=== PATIENT | female | born 1960 | race Hispanic/Latino ===

== ENCOUNTER 2021-04-11 14:34 | Observation (INO) | payer OTHER ==
[~2021-04-11 14:34] MED LIST: AMINOPHYLLINE 500 MG/20 ML INJ IV ONE; ONDANSETRON 4 MG/2 ML INJ ONE
[2021-04-11] MEDS ORDERED: ASPIRIN 325 MG TAB PO ONE (14:55)
[2021-04-11 15:23] LABS: Basophils # (Auto) 0.1 K/mm3 (0.0-0.1); Basophils % (Auto) 0.8 % (0.0-1.8); Eosinophils # (Auto) 0.1 K/mm3 (0.0-0.4); Eosinophils % (Auto) 1.2 % (0.0-4.3); Hematocrit 37.4 % (30.3-42.9); Hemoglobin 13.1 gm/dl (10.1-14.3); Lymphocytes # (Auto) 2.2 K/mm3 (1.2-5.4); Lymphocytes % (Auto) 34.3 % (13.4-35.0); Mean Corpuscular HGB Conc 35 % (30-34); Mean Corpuscular Volume 96 fl (79-97); Monocytes # (Auto) 0.6 K/mm3 (0.0-0.8); Monocytes % (Auto) 9.9 % (0.0-7.3); Platelet Count 177 K/mm3 (140-440); Red Blood Count 3.89 M/mm3 (3.65-5.03); Red Cell Distribution Width 13.9 % (13.2-15.2)
--- NOTE | 2021-04-11 15:26 | Emergency Department Report ---
ED Chest Pain HPI - General Chief Complaint: Chest Pain Stated Complaint: CHEST PAIN/SHORTNESS OF BREATH Time Seen by Provider: 04/11/21 14:50 Source: patient Mode of arrival: Stretcher Limitations: No Limitations - History of Present Illness Initial Comments: This is a 61-year-old female presents to the emergency department via EMS from with complaint of a 3-day history of intermittent left-sided chest pain and shortness of breath. Patient has a history of previous GA x2, bipolar disorder, and remote rheumatic fever. She denies having any coronary stents in place. The patient just recently moved here from [place] and therefore does not have a local primary care physician or supervisor inventory merchandising. She is a former smoker and denies any illicit drug use. Patient has been taking some sublingual nitroglycerin while at home with some transient relief. She received a full dose aspirin and 3 sublingual nitroglycerin in route with EMS. She denies any fever, cough, back pain, lower extremity swelling, nausea, vomiting or diaphoresis. At the time of my initial examination the patient says that the pain has resolved but it is intermittent. No known aggravating factors. Severity scale (0 -10): 4 - Related Data Allergies Allergy/AdvReac Type Severity Reaction Status Date / Time Sulfa (Sulfonamide Allergy Hives Verified 04/11/21 14:51 Antibiotics) Heart Score - HEART Score History: Slightly suspicious EKG: Normal Age: 45-65 Risk factors: > 3 risk factors or hx of atherosclerotic disease Troponin: < normal limit HEART Score: 3 - EKG Read Time Time EKG Completed: 14:56 EKG Read Time: 15:06 - Critical Actions Critical Actions: 0-3 pts:0.9-1.7%risk of adverse cardiac event.Candidate for discharge ED Review of Systems ROS: Stated complaint: CHEST PAIN/SHORTNESS OF BREATH Other details as noted in HPI Comment: All other systems reviewed and negative Constitutional: denies: chills, fever Eyes: denies: eye pain, vision change ENT: denies: ear pain, throat pain Respiratory: shortness of breath. denies: cough Cardiovascular: chest pain. denies: palpitations, edema Gastrointestinal: denies: abdominal pain, vomiting Genitourinary: denies: dysuria, discharge Musculoskeletal: denies: back pain, arthralgia Skin: denies: rash, lesions Neurological: denies: headache, weakness ED Past Medical Hx - Past Medical History Previous Medical History?: Yes Hx Hypertension: Yes Hx Heart Attack/AMI: Yes Additional medical history: Rheumatic Fever. Tremors from [employer] meds - Surgical History Past Surgical History?: No - Social History Smoking Status: Former Smoker Substance Use Type: None ED Physical Exam - General Limitations: No Limitations - Other Other exam information: GENERAL: The patient is well-developed well-nourished. HENT: Normocephalic. Atraumatic. Patient has moist mucous membranes. EYES: Extraocular motions are intact. NECK: Supple. Trachea is midline. CHEST/LUNGS: Clear to auscultation. There is no respiratory distress noted. Chest pain is not reproducible to palpation of the chest wall. No crepitus or deformity. HEART/CARDIOVASCULAR: Regular. There is no tachycardia. There is no murmur. ABDOMEN: Abdomen is soft, nontender. Patient has normal bowel sounds. SKIN: Skin is warm and dry. NEURO: The patient is awake, alert, and oriented. The patient is cooperative. The patient has no focal neurologic deficits. Normal speech. Patient has a right upper extremity tremor that she says is chronic. MUSCULOSKELETAL: There is no tenderness or deformity. There is no limitation range of motion. ED Course Vital Signs 04/11/21 15:05 Pulse Rate 103 H Respiratory 18 Rate Blood Pressure 130/95 [Right] O2 Sat by Pulse 96 Oximetry RAMÍREZ score - Ramírez Score Age > 65: (0) No Aspirin use within the Past 7 Days: (1) Yes 3 or more CAD Risk Factors: (1) Yes 2 or more Angina events in past 24 hrs: (1) Yes Known CAD with more than 50% Stenosis: (0) No Elevated Cardiac Markers: (0) No ST Deviation Greater than 0.5mm: (0) No RAMÍREZ Score: 3 ED Medical Decision Making - Lab Data Result diagrams: 04/11/21 15:00 04/11/21 15:00 - EKG Data -: EKG Interpreted by Me EKG shows normal: sinus rhythm, axis, intervals, QRS complexes, ST-T waves Rate: normal - EKG Data When compared to previous EKG there are: previous EKG unavailable Interpretation: normal EKG - Radiology Data Radiology results: image reviewed interpreted by me: Chest x-ray does not show any acute process. There are no pleural effusions, obvious pneumonia and there is no pneumothorax. No widened mediastinum - Medical Decision Making This patient presents with the complaint of a few days of intermittent left- sided chest pain that has worsened today. EKG does not have any morphology consistent with ST elevation myocardial infarction. Chest x-ray does not show any pneumonia, pleural effusions, widened mediastinum, or any acute process. Patient's labs have thus far been unremarkable including CBC, metabolic panel, negative D-dimer, negative first troponin. She has a moderate heart and RAMÍREZ score. For these reasons the patient will be admitted to the hospital for fur ther evaluation and treatment and was accepted for admission by the hospitalist, Dr. Mohamud. Critical Care Time: No Critical care attestation.: If time is entered above; I have spent that time in minutes in the direct care of this critically ill patient, excluding procedure time. ED Disposition Clinical Impression: Acute chest pain Dyspnea Qualifiers: Dyspnea type: shortness of breath Qualified Code(s): R06.02 - Shortness of br eath; R06.00 - Dyspnea, unspecified; R06.01 - Orthopnea Disposition: 09 OP ADMIT IP TO THIS HOSP Is pt being admited?: Yes Condition: Fair Instructions: Chest Pain (ED) Time of Disposition: 17:29
[2021-04-11 15:34] LABS: INR 0.84 (0.87-1.13)
[2021-04-11 15:44] LABS: Alanine Aminotransferase < 5 units/L (7-56); Albumin 3.4 g/dL (3.9-5); BUN/Creatinine Ratio 26; Blood Urea Nitrogen 21 mg/dL (7-17); Calcium 8.6 mg/dL (8.4-10.2); Hemolysis Index 6
--- NOTE | 2021-04-11 15:49 | XRay Report ---
XR chest 1V ap INDICATION / CLINICAL INFORMATION: chest pain . COMPARISON: None available. FINDINGS: SUPPORT DEVICES: None. HEART /PULMONARY VASCULATURE: No significant abnormality. LUNGS / PLEURA: No significant pulmonary or pleural abnormality. No pneumothorax. ADDITIONAL FINDINGS: No significant additional findings. IMPRESSION: 1. No acute findings. Signer Name: Bob Campuzano MD Signed: 04/11/2021 3:45 PM Workstation Name: [id number]
[2021-04-11] MEDS ORDERED: MORPHINE 4 MG/1 ML INJ ONE (16:25)
[2021-04-11] MEDS ORDERED: IPRATROPIUM/ALBUTEROL SULFATE 3 ML AMPUL.NEB IH ONE (16:29)
[2021-04-11] MEDS ORDERED: MORPHINE 4 MG/1 ML INJ IV ONE (16:30)
[2021-04-11] MEDS: HYDROmorphone 1 MG/1 ML INJ IV PRN ×2 (19:36→21:18)
[2021-04-12] MEDS: HYDROmorphone 1 MG/1 ML INJ IV PRN ×4 (00:15→15:00)
--- NOTE | 2021-04-12 01:48 | History and Physical Report ---
History of Present Illness Date of examination: 04/11/21 Date of admission: 04/11/21 17:29 Chief complaint: Chest pain for 1 day History of present illness: 61-year-old female with history of tardive dyskinesia and rest tremors comes in for left-sided chest pain for 3 days. Chest pain is intermittent. Patient has history of coronary artery disease, bipolar disorder and remote rheumatic fever. No coronary stents. Patient is taking sublingual nitrogly cerin for relief of pain. No nausea vomiting or diarrhea. Chest pain is retrosternal and about 6 on a scale of 1-10. No radiation. No diaphoresis. No shortness of breath. Heart Score - HEART Score History: Slightly suspicious EKG: Normal Age: 45-65 Risk factors: > 3 risk factors or hx of atherosclerotic disease Troponin: < normal limit HEART Score: 3 - EKG Read Time Time EKG Completed: 14:56 EKG Read Time: 15:06 - Critical Actions Critical Actions: 0-3 pts:0.9-1.7%risk of adverse cardiac event.Candidate for discharge Review of Systems ROS: Stated complaint: CHEST PAIN/SHORTNESS OF BREATH Other details as noted in HPI Comment: All other systems reviewed and negative Constitutional: denies: chills, fever Eyes: denies: eye pain, vision change ENT: denies: ear pain, throat pain Respiratory: shortness of breath. denies: cough Cardiovascular: chest pain. denies: palpitations, edema Gastrointestinal: denies: abdominal pain, vomiting Genitourinary: denies: dysuria, discharge Musculoskeletal: denies: back pain, arthralgia Skin: denies: rash, lesions Neurological: denies: headache, weakness Past History Past Medical History: CAD, hypertension, other (Tardive dyskinesia.) Past Surgical History: Other (Right knee surgery-arthroscopy) Social history: full code, other (Used to be a smoker and occasional alcohol in the past few years ago. Stop smoking.) Medications and Allergies Allergies Allergy/AdvReac Type Severity Reaction Status Date / Time Sulfa (Sulfonamide Allergy Hives Verified 04/11/21 14:51 Antibiotics) Home Medications Medication Instructions Recorded Confirmed Last Taken Type Aspirin EC [Halfprin EC] 81 mg PO QDAY 04/12/21 04/12/21 04/11/21 History 81 Cariprazine HCl [Vraylar] 6 mg PO DAILY MDD 6mg 04/12/21 04/12/21 04/11/21 History [address] 1,000 mg PO HS MDD 2 tabs 04/12/21 04/12/21 04/11/21 History 1000 mg Ibuprofen [Motrin 600 MG tab] 600 mg PO DAILY MDD 600 04/12/21 04/12/21 04/11/21 History 600 mg Levothyroxine 125 mcg PO DAILY MDD 125mcg 04/12/21 04/12/21 04/11/21 History 125 mcg traZODone [Desyrel] 100 mg PO QHS MDD 100mg 04/12/21 04/12/21 04/10/21 History 100 mg Active Meds: Active Medications Hydromorphone HCl (Hydromorphone 1 Mg/1 Ml Inj) 0.5 mg IV Q3H PRN PRN Reason: Pain , Severe (7-10) Last Admin: 04/11/21 21:18 Dose: 0.5 mg Documented by: Exam - Constitutional Vitals: Temp Pulse Resp BP Pulse Ox 98.6 F 84 20 122/87 97 04/12/21 01:16 04/12/21 01:42 04/12/21 01:16 04/12/21 01:16 04/12/21 01:16 General appearance: Present: no acute distress, well-nourished - EENT Eyes: Present: PERRL ENT: hearing intact, clear oral mucosa - Neck Neck: Present: supple, normal ROM - Respiratory Respiratory effort: normal Respiratory: bilateral: CTA - Cardiovascular Heart rate: 78 Rhythm: regular Heart Sounds: Present: S1 & S2. Absent: rub, click - Extremities Extremities: pulses symmetrical, No edema Peripheral Pulses: within normal limits - Abdominal General gastrointestinal: Present: soft, non-tender, non-distended, normal bowel sounds Female genitourinary: Present: normal - Integumentary Integumentary: Present: clear, warm, dry - Musculoskeletal Musculoskeletal: strength equal bilaterally, other (Rest tremors) - Psychiatric Psychiatric: appropriate mood/affect, intact judgment & insight - Neurologic Neurologic: CNII-XII intact, moves all extremities HEART Score - HEART Score EKG: Normal Age: 45-65 Risk factors: > 3 risk factors or hx of atherosclerotic disease Troponin: Troponin T < 0.010 ng/mL (0.00-0.029) 04/11/21 20:11 Troponin: < normal limit - Critical Actions Critical Actions: 0-3 pts:0.9-1.7%risk of adverse cardiac event.Candidate for discharge Results - Labs CBC & Chem 7: 04/11/21 15:00 04/11/21 15:00 Labs: Laboratory Last Values WBC 6.3 K/mm3 (4.5-11.0) 04/11/21 15:00 RBC 3.89 M/mm3 (3.65-5.03) 04/11/21 15:00 Hgb 13.1 gm/dl (10.1-14.3) 04/11/21 15:00 Hct 37.4 % (30.3-42.9) 04/11/21 15:00 MCV 96 fl (79-97) 04/11/21 15:00 MCH 34 pg (28-32) H 04/11/21 15:00 MCHC 35 % (30-34) H 04/11/21 15:00 RDW 13.9 % (13.2-15.2) 04/11/21 15:00 Plt Count 177 K/mm3 (140-440) 04/11/21 15:00 Lymph % (Auto) 34.3 % (13.4-35.0) 04/11/21 15:00 [place] % (Auto) 9.9 % (0.0-7.3) H 04/11/21 15:00 Eos % (Auto) 1.2 % (0.0-4.3) 04/11/21 15:00 Baso % (Auto) 0.8 % (0.0-1.8) 04/11/21 15:00 Lymph # (Auto) 2.2 K/mm3 (1.2-5.4) 04/11/21 15:00 [place] # (Auto) 0.6 K/mm3 (0.0-0.8) 04/11/21 15:00 Eos # (Auto) 0.1 K/mm3 (0.0-0.4) 04/11/21 15:00 Baso # (Auto) 0.1 K/mm3 (0.0-0.1) 04/11/21 15:00 Seg Neutrophils % 53.8 % (40.0-70.0) 04/11/21 15:00 Seg Neutrophils # 3.4 K/mm3 (1.8-7.7) 04/11/21 15:00 PT 12.1 Sec. (12.2-14.9) L 04/11/21 15:10 INR 0.84 (0.87-1.13) L 04/11/21 15:10 D-Dimer 188.83 ng/mlDDU (0-234) 04/11/21 15:34 Sodium 139 mmol/L (137-145) 04/11/21 15:00 Potassium 3.7 mmol/L (3.6-5.0) 04/11/21 15:00 Chloride 103.3 mmol/L (98-107) 04/11/21 15:00 Carbon Dioxide 26 mmol/L (22-30) 04/11/21 15:00 Anion Gap 13 mmol/L 04/11/21 15:00 BUN 21 mg/dL (7-17) H 04/11/21 15:00 Creatinine 0.8 mg/dL (0.6-1.2) 04/11/21 15:00 Estimated GFR > 60 ml/min 04/11/21 15:00 BUN/Creatinine Ratio 26 % 04/11/21 15:00 Glucose 83 mg/dL (65-100) 04/11/21 15:00 Calcium 8.6 mg/dL (8.4-10.2) 04/11/21 15:00 Total Bilirubin 0.20 mg/dL (0.1-1.2) 04/11/21 15:00 AST 10 units/L (5-40) 04/11/21 15:00 ALT < 5 units/L (7-56) L 04/11/21 15:00 Alkaline Phosphatase 50 units/L (35-129) 04/11/21 15:00 Troponin T < 0.010 ng/mL (0.00-0.029) 04/11/21 20:11 Total Protein 5.9 g/dL (6.3-8.2) L 04/11/21 15:00 Albumin 3.4 g/dL (3.9-5) L 04/11/21 15:00 Albumin/Globulin Ratio 1.4 % 04/11/21 15:00 Assessment and Plan Advance Directives: Yes (Full code) VTE prophylaxis?: Chemical Plan of care discussed with patient/family: Yes - Patient Problems (1) Acute coronary syndrome Current Visit: Yes Status: Acute Plan to address problem: Serial troponins and Lexiscan in the morning (2) Hypothyroidism (acquired) Current Visit: Yes Status: Chronic Plan to address problem: Continue Synthroid and check TSH (3) Bipolar disorder Current Visit: Yes Status: Chronic Qualifiers: Active/Remission status: in remission of unspecified degree Qualified Code(s): F31.70 - Bipolar disorder, currently in remission, most recent episode unspecified Plan to address problem: Continue home medications in the form of Depakote and Vraylar (4) DVT prophylaxis Current Visit: Yes Status: Acute Plan to address problem: On heparin and GI prophylaxis
[2021-04-12] MEDS ORDERED: ACETAMINOPHEN 325 MG TAB PO PRN (01:49)
[2021-04-12] MEDS ORDERED: METOCLOPRAMIDE 10 MG/2 ML INJ IV PRN (01:49)
[2021-04-12] MEDS ORDERED: oxyCODONE /ACETAMINOPHEN 5-325MG TAB PO PRN (01:49)
[2021-04-12] MEDS ORDERED: ONDANSETRON 4 MG/2 ML INJ IV PRN (01:49)
[2021-04-12] MEDS ORDERED: REGADENOSON 0.4 MG/5 ML INJ IV ONE (09:00)
[2021-04-12] MEDS ORDERED: LEVOTHYROXINE 125 MCG TAB PO SCH (09:00)
--- NOTE | 2021-04-12 09:57 | Electrocardiograph Report ---
[facility] Test Date: 2021-04-11 Test Time: 14:56:35 Pat Name: MAREK CHAIREZ Department: Room: A481 1 Gender: F Windows Consultant: JERRY BURNETTE : 1960 Requested By: LYNDA CROWE Order Number: [id number] Reading MD: Delfino Gaona Measurements Intervals [place] Rate: 78 P: 56 NH: 158 QRS: 4 QRSD: 67 T: 24 QT: 337 QTc: 385 Interpretive Statements Sinus rhythm non specific st-t No previous ECG available for comparison Electronically Signed On 04-12-2021 9:56:34 EDT by Delfino Gaona
[2021-04-12] MEDS ORDERED: HEPARIN 5,000 UNIT/1 ML VIAL SUB-Q SCH (10:00)
[2021-04-12] MEDS ORDERED: FAMOTIDINE 20 MG TAB PO SCH (10:00)
[2021-04-12] MEDS ORDERED: ASPIRIN EC 81 MG TAB PO SCH (10:00)
[2021-04-12] MEDS ORDERED: CARIPRAZINE HCL 6 MG PO SCH (10:00)
--- NOTE | 2021-04-12 10:05 | Electrocardiograph Report ---
[facility] Test Date: 2021-04-12 Test Time: 07:19:54 Pat Name: MAREK CHAIREZ Department: Room: A481 1 Gender: F Dynamic Balancer Set Up Worker: MICHAEL : 1960 Requested By: LYNDA CROWE Order Number: [id number] Reading MD: Delfino Gaona Measurements Intervals [place] Rate: 84 P: WI: QRS: -6 QRSD: 81 T: 16 QT: 360 QTc: 426 Interpretive Statements NSR non specific st-t baseline artifact Compared to ECG 04/11/2021 14:56:35 Electronically Signed On 04-12-2021 10:04:52 EDT by Delfino Gaona
--- NOTE | 2021-04-12 12:07 | Nuclear Medicine Report ---
APPROVED REPORT Exam: Nuclear Stress Test Indication: Chest pain BMI: 0 Stress Test Details Stress Test: Pharmacologic stress testing performed using 0.4 mg of regadenoson per 5 mL given IV over 10 seconds. HR Resting HR: 79 bpm Max HR Achieved: 109 bpm Max Heart Rate (APMHR): 159 bpm Target HR (85% APMHR): 135 bpm % of APMHR: 68 Recovery HR: 91 bpm HR response to stress: Normal HR response to stress BP Resting BP: 114/57 mmHg Max BP: 141/83 mmHg Recovery BP: 129/59 mmHg BP response to stress: Normal blood pressure response to stress. ECG Resting ECG: Sinus Rhythm Stress ECG: Sinus Tachycardia Clinical Reason for Termination: Completed protocol NM EXAM: Myocardial Perfusion REST/STRESS Imaging Protocol: Rest Tc-99m/Stress Tc-99m 1 day Resting Data Rest SPECT myocardial perfusion imaging was performed in supine position 45 minutes following the intravenous injection of 10 mCi of Tc-99m Myoview. Time of rest injection: 0900 Pharmacologic Stress Pharmacologic stress test was performed by injecting Regadenoson 0.4 mg IV push followed by the intravenous injection of 28 mCi of Tc-99m Myoview. Time of stress injection: 1000 Gated Stress SPECT was performed 30 minutes after stress injection. Study Quality Study: excellent Lung Uptake: Normal Study Data TID = 0.96. Perfusion Wall Motion The rest and stress images show normal left ventricular wall motion. Nuclear Conclusion ECG Findings: negative for ischemia Clinical Findings: negative for ischemia Nuclear Findings: negative for ischemia Exercise Capacity: not assessed Left Ventricular Function: normal Normal study. No signficant scintigraphic evidence for myocardial ischemia or scar. proably breast attenutation for a small mild apical anterior defect and normal lv function
[2021-04-12 13:17] VITALS: BP 132/70
--- NOTE | 2021-04-12 16:16 | Discharge Summary ---
Providers - Providers Date of Admission: 04/11/21 17:29 Date of discharge: 04/12/21 Attending physician: BK CORTEZ 04/12/21 07:23 Consult to Mental Health [CONS] Routine Reason For Exam: History of bipolar disorder Primary care physician: PICKLE CUTTER Hospitalization Condition: Fair Pertinent studies: CXR MPI stress test Hospital course: 61-year-old female with history of tardive dyskinesia and rest tremors comes in for left-sided chest pain for 3 days. Patient was evaluated in the ER, initial cardiac enzyme and EKG was unremarkable, chest x-ray showed no infiltrates. Patient was admitted and underwent myocardial stress test which was normal. Patient was then discharged home in stable condition with outpatient follow-up. Disposition: TO HOME OR SELFCARE Final Discharge Diagnosis (Prints w/discharge instructions): Atypical chest pain, likely due to GERD. Acquired hypothyroidism. Bipolar disorder. Tardive dyskinesia Time spent for discharge: 32 minutes Core Measure Documentation - Palliative Care Palliative Care/ Comfort Measures: Not Applicable - Core Measures Any of the following diagnoses?: none Exam - Physical Exam Narrative exam: General appearance: Present: no acute distress, well-nourished - EENT Eyes: Present: PERRL ENT: hearing intact, clear oral mucosa - Neck Neck: Present: supple, normal ROM - Respiratory Respiratory effort: normal Respiratory: bilateral: CTA - Cardiovascular Heart rate: 78 Rhythm: regular Heart Sounds: Present: S1 & S2. Absent: rub, click - Extremities Extremities: pulses symmetrical, No edema Peripheral Pulses: within normal limits - Abdominal General gastrointestinal: Present: soft, non-tender, non-distended, normal bowel sounds Female genitourinary: Present: normal - Integumentary Integumentary: Present: clear, warm, dry - Musculoskeletal Musculoskeletal: strength equal bilaterally, other (Rest tremors) - Psychiatric Psychiatric: appropriate mood/affect, intact judgment & insight - Neurologic Neurologic: CNII-XII intact, moves all extremities - Constitutional Vitals: Temp Pulse Resp BP Pulse Ox 98.7 F 84 20 132/70 97 04/12/21 07:30 04/12/21 07:30 04/12/21 08:09 04/12/21 10:13 04/12/21 08:09 Plan Activity: advance as tolerated, fall precautions Weight Bearing Status: Weight Bear as Tolerated Diet: low fat, low salt Additional Instructions: Follow-up with PCP in 1 week Follow up with: PRIMARY CARE, [Primary Care Provider] - 3-5 Days Prescriptions: Pantoprazole [Protonix] 40 mg PO QDAY #30 tablet
--- NOTE | 2021-04-12 20:44 | Consultation ---
History of Present Illness - Reason for Consult Consult date: 04/12/21 Reason for consult: Bipolar - Chief Complaint Chief complaint: Chest pain for 1 day - History of Present Psychiatric Illness Per note: 61-year-old female with history of tardive dyskinesia and rest tremors comes in for left-sided chest pain for 3 days. Chest pain is intermittent. Patient has history of coronary artery disease, bipolar disorder and remote rheumatic fever. No coronary stents. Patient is taking sublingual nitroglycerin for relief of pain. No nausea vomiting or diarrhea. Chest pain is retrosternal and about 6 on a scale of 1-10. No radiation. No diaphoresis. No shortness of breath. The patient is a 61 year old female with a past history of Bipolar, PTSD and Tardive Dyskinesia who presented to the ED with chest pain. In my interview with patient, she reports doing well but would like for her psychotropic medications to be restarted. She reports taking Vraylar 6mg daily, Depakote 1000mg at bedtime and Trazodone 100mg at bedtime. Patient reports mood as "OK." Patient reports she has being on medications for a while and states "I would rather have the shakes than bipolar." Patient denies any current suicidal ideation and denies hallucinations. PAST PSYCHIATRIC HISTORY: Diagnoses: Bipolar and PTSD Suicide attempts or Self-harm behavior: Denied Prior psychiatric hospitalizations: Yes Substance Abuse history: Denied Previous psychiatric medications tried: unable to recall Outpatient treatment:unknown PAST MEDICAL HISTORY: Family Psychiatric History: None reported or documented SOCIAL HISTORY Marital Status: known Living Arrangements: Lives alone Employment Status: unknown Access to guns/weapons: n/a Education: unknown History of Abuse: n/a Legal History: n/a REVIEW OF SYSTEMS Constitutional: Negative for weight loss ENT: Negative for stridor Respiratory: Negative for cough or hemoptysis All other systems reviewed and are negative MENTAL STATUS EXAMINATION General Appearance and Behavior: Age appropriate, good hygiene, wearing a ppropriate clothes, uncooperative polite with questioning. Cooperation: cooperative Psychomotor Behavior: Psychomotor agitation Mood: "OK" Affect and affective range: congruent Thought Process: goal directed Thought Content: Denies SI Speech: Normal, volume Intellectual Functioning: average Suicidal Ideation: Denied Homicidal Ideation: Denied hallucination: Denied Impulse Control: Intact Insight and Judgment:limited Memory: Intact Attention:Intact Orientation: Alert and oriented Diagnoses: (1) Bipolar Treatment Plan: Continue Home medications Depakote 500mg 2 tablets Po QHS Trazodone 100mg Po QHS Patient should be compliant with medications and not to use drugs and not to drink alcohol. PSYCHOTHERAPY: Supportive psychotherapy provided MEDICAL: Per primary team DELIRIUM PRECAUTIONS: Please re-orient patient frequently, keep lights on during the day, and minimize benzodiazepines and opiates as these medications could worsen patient's confusion. SITE RELIABILITY ENGINEER: Per medical team DISPOSITION: Do not recommend acute inpatient psychiatric hospitalization at this time FOLLOW-UP: Patient to follow up with psychiatry outpatient post discharge. Will sign off Thank you for the consult. Please contact with any questions and/or concerns. Medications and Allergies Allergies Allergy/AdvReac Type Severity Reaction Status Date / Time Sulfa (Sulfonamide Allergy Hives Verified 04/11/21 14:51 Antibiotics) Home Medications Medication Instructions Recorded Confirmed Last Taken Type Aspirin EC [Halfprin EC] 81 mg PO QDAY 04/12/21 04/12/21 04/11/21 History 81 Cariprazine HCl [Vraylar] 6 mg PO DAILY MDD 6mg 04/12/21 04/12/21 04/11/21 History [address] 1,000 mg PO HS MDD 2 tabs 04/12/21 04/12/21 04/11/21 History 1000 mg Levothyroxine 125 mcg PO DAILY MDD 125mcg 04/12/21 04/12/21 04/11/21 History 125 mcg Pantoprazole [Protonix] 40 mg PO QDAY #30 tablet 04/12/21 Unknown Rx traZODone [Desyrel] 100 mg PO QHS MDD 100mg 04/12/21 04/12/21 04/10/21 History 100 mg Mental Status Exam - Vital signs Last Vital Signs Temp 98.7 F 04/12/21 07:30 Pulse 84 04/12/21 07:30 Resp 20 04/12/21 08:09 BP 132/70 04/12/21 10:13 Pulse Ox 97 04/12/21 08:09 Results Result Diagrams: 04/11/21 15:00 04/11/21 15:00 All other labs normal.
[2021-04-12] MEDS ORDERED: DIVALPROEX DR 500 MG TAB PO SCH ×2 (22:00)
[2021-04-12] MEDS ORDERED: traZODone 100 MG TAB PO SCH ×2 (22:00)
== END 2021-04-12 17:25 | disposition home or self-care (01) ==
LOC: ED 14:34 → 4A 17:29
PROVIDERS: ADMIT Internal Medicine; ATTEND Internal Medicine
DX: I24.9 Acute ischemic heart disease, unspecified (principal); E03.9 Hypothyroidism, unspecified; F31.70 Bipolar disorder, currently in remission, most recent episode unspecified; R06.00 Dyspnea, unspecified; I10 Essential (primary) hypertension; I25.10 Atherosclerotic heart disease of native coronary artery without angina pectoris; Z79.899 Other long term (current) drug therapy; Z98.890 Other specified postprocedural states; Z79.82 Long term (current) use of aspirin; Z87.891 Personal history of nicotine dependence
CPT/HCPCS: 36415; 71045; 78452; 80053; 83036; 84443; 84484; 85025; 85379; 85610; 93005; 93017; 96372; 96374; 96375; 96376; 99285; A9502; G0378; J1170; J1644; J2270; J2785; J0280; J2405